=== PATIENT | female | born 1940 | race Caucasian/White ===

== ENCOUNTER 2021-06-13 08:00 | Outpatient (CLI) | payer MEDICARE ==
--- NOTE | 2021-06-13 13:33 | XRAY Report ---
PROCEDURE: Sacrum/Coccyx INDICATIONS: SACRUM COCCYX PAIN TECHNIQUE: 3 views of the sacrum and coccyx acquired. COMPARISON: None. FINDINGS: Bones: No fractures or dislocations. No suspicious bony lesions. Soft tissues: Visualized bowel gas pattern is normal. No suspicious soft tissue densities. 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 No prior trauma suspected. Reviewed by: Sher Ortega MD on 06/13/2021 1:32 PM PDT Approved by: Sher Ortega MD on 06/13/2021 1:32 PM PDT Station ID: [id number]
--- NOTE | 2021-06-13 13:34 | XRAY Report ---
PROCEDURE: Ankle 3 View LT INDICATIONS: LEFT ANKLE PAIN TECHNIQUE: 3 views of the ankle were acquired. COMPARISON: None FINDINGS: Bones: No fractures or dislocations. Ankle mortise is normally aligned. No suspicious bony lesions . Soft tissues: No tibiotalar joint effusion. Achilles tendon appears normal. IMPRESSION: A mild degree of joint space narrowing is seen at the tibiotalar joint without evidence of trauma or joint effusion. Source of left ankle pain otherwise is not found. Reviewed by: Sher Ortega MD on 06/13/2021 1:33 PM PDT Approved by: Sher Ortega MD on 06/13/2021 1:33 PM PDT Station ID: [id number]
--- NOTE | 2021-06-13 13:34 | XRAY Report ---
PROCEDURE: Foot 3 View LT INDICATIONS: LEFT FOOT PAIN TECHNIQUE: 3 views of the foot were acquired. COMPARISON: None FINDINGS: Bones: No fractures or dislocations. No suspicious bony lesions. Soft tissues: No tibiotalar joint effusion. Achilles tendon appears normal. IMPRESSION: Mild degenerative osteoarthritis at the first MTP joint, no trauma found. Reviewed by: Sher Ortega MD on 06/13/2021 1:33 PM PDT Approved by: Sher Ortega MD on 06/13/2021 1:33 PM PDT Station ID: [id number]
== END 2021-06-13 13:59 | disposition home or self-care (01) ==
LOC: DI.S 08:00
PROVIDERS: ATTEND Physician Assistant Medical
DX: M25.572 Pain in left ankle and joints of left foot (principal); M19.072 Primary osteoarthritis, left ankle and foot; M47.816 Spondylosis without myelopathy or radiculopathy, lumbar region; M51.36 Other intervertebral disc degeneration, lumbar region

== ENCOUNTER 2021-08-21 11:49 | Outpatient (CLI) | payer MEDICARE ==
[2021-08-21 14:50] LABS: BASOPHILS % (AUTO) 0.6 %; EOSINOPHILS # (AUTO) 0.1 10^3/uL (0.0-0.7); EOSINOPHILS % (AUTO) 1.3 %; HCT - HEMATOCRIT 42.8 % (37.0-47.0); HGB - HEMOGLOBIN 13.8 g/dL (12.0-16.0); LYMPHOCYTES # (AUTO) 1.9 10^3/uL (1.5-3.5); LYMPHOCYTES % (AUTO) 30.4 %; MEAN CORPUSCULAR HEMOGLOBIN 32.9 pg (27.0-31.0); MEAN CORPUSCULAR HGB CONC 32.2 g/dL (32.0-36.0); MEAN CORPUSCULAR VOLUME 102.1 fL (81.0-99.0); MEAN PLATELET VOLUME 9.7 fL (7.9-10.8); MONOCYTES # (AUTO) 0.8 10^3/uL (0.0-1.0); MONOCYTES % (AUTO) 12.1 %; NEUTROPHILS # (AUTO) 3.5 10^3/uL (1.5-6.6); NEUTROPHILS % (AUTO) 55.4 %; PLT - PLATELET COUNT 239 10^3/uL (130-450); RED BLOOD COUNT 4.19 10^6/uL (4.20-5.40); RED CELL DISTRIBUTION WIDTH 13.9 % (12.0-15.0); WHITE BLOOD COUNT 6.4 x10^3/uL (4.8-10.8)
[2021-08-21 15:40] LABS: ALBUMIN 4.2 g/dL (3.2-5.5); ALBUMIN/GLOBULIN RATIO 1.6 (1.0-2.2); BILIRUBIN,TOTAL 0.5 mg/dL (0.2-1.0); CALCIUM 9.5 mg/dL (8.5-10.3); CREATININE 0.7 mg/dL (0.4-1.0); POTASSIUM 4.3 mmol/L (3.5-5.0); TOTAL PROTEIN 6.9 g/dL (6.7-8.2)
[2021-08-21 15:54] LABS: THYROID STIMULATING HORMONE 2.27 uIU/mL (0.34-5.60)
== END 2021-08-21 11:50 | disposition home or self-care (01) ==
LOC: LAB.S 11:49
PROVIDERS: ATTEND Internal Medicine Geriatric Medicine
DX: E53.8 Deficiency of other specified B group vitamins (principal); E03.9 Hypothyroidism, unspecified; M81.0 Age-related osteoporosis without current pathological fracture; E55.9 Vitamin D deficiency, unspecified
CPT/HCPCS: 36415; 80053; 82306; 82607; 84443; 85025

== ENCOUNTER 2021-09-29 12:42 | Outpatient (CLI) | payer MEDICARE ==
--- NOTE | 2021-09-29 14:51 | CT Report ---
PROCEDURE: HEAD WO INDICATIONS: COGNITIVE IMPAIRMENT TECHNIQUE: Noncontrast 4.5 mm thick angled axial sections acquired from the foramen magnum to the vertex. For r adiation dose reduction, the following was used: automated exposure control, adjustment of mA and/or kV according to patient size. COMPARISON: None. FINDINGS: Image quality: Excellent. CSF spaces: Basal cisterns are patent. No extra-axial fluid collections. Ventricles are normal in size and shape. Brain: No midline shift. No intracranial masses or hemorrhage. Girard-white matter interface is norm al. Subcortical and periventricular hypodensities are consistent with microvascular ischemic disease. Microvascular ischemic disease and age-related cerebral volume loss. Skull and face: Calvarium and visualized facial bones are intact, without suspicious lesions. Sinuses: Visualized sinuses and mastoids are clear. IMPRESSION: 1. No acute intracranial abnormality. 2. Microvascular ischemic disease and age-related cerebral volume loss. Reviewed by: Christopher Ornelas on 09/29/2021 1:50 PM [facility] Approved by: Christopher Ornelas on 09/29/2021 1:50 PM [facility] Station ID: [id number]
== END 2021-09-29 12:43 | disposition home or self-care (01) ==
LOC: DI 12:42
PROVIDERS: ATTEND Internal Medicine Geriatric Medicine
DX: R41.89 Other symptoms and signs involving cognitive functions and awareness (principal)

== ENCOUNTER 2023-10-28 14:48 | Outpatient (CLI) | payer MEDICARE | END 2023-10-28 23:59 | disposition critical access hospital (66) | LOC: EMS 14:48 | DX: M54.50 Low back pain, unspecified (principal); R11.0 Nausea | CPT/HCPCS: A0425; A0427 ==

== ENCOUNTER 2023-10-28 15:17 | Emergency (ER) | payer MEDICARE ==
[2023-10-28] MEDS ORDERED: MORPHINE 2 MG/ML CARPUJECT IVP STA (15:31)
--- NOTE | 2023-10-28 15:32 | ED Physician Documentation ---
History of Present Illness - Stated complaint Stated Complaint: LOWER BACK PX - History obtained from History obtained from: Patient, Family, EMS - Additonal information Additional information: 83-year-old woman with dementia but very medically healthy presents by ambulance accompanied very shortly thereafter by her daughter. She has no history of back pain instantly started to complain of severe back pain this morning and could not get out of bed. There was no specific injury. She received 15 mg of IV Toradol and route from EMS, it is hard to ascertain due to her dementia if that was particularly helpful or not. No UTI symptoms or fevers. PD PAST MEDICAL HISTORY - Present Medications Home Medications: Ambulatory Orders Medication Instructions Recorded Confirmed HYDROcod/ACETAM 5/325 [Kyle 5/325] 0.5 - 1 tab PO Q6H PRN #8 tablet 10/28/23 - Allergies Allergies/Adverse Reactions: Allergies Allergy/AdvReac Type Severity Reaction Status Date / Time shellfish derived Allergy Anaphylaxis Verified 10/28/23 15:35 PD ED PE NORMAL - Vitals Vital signs reviewed: Yes - General General: Other (She is alert and oriented to person but not place time or events, she does appear to be uncomfortable and in pain. She has out of proportion overt pain response to blood pressure cuff.) - HEENT HEENT: PERRL, EOMI - Neck Neck: Supple, no meningeal sign, No bony TTP - Cardiac Cardiac: RRR, No murmur - Respiratory Respiratory: No respiratory distress, Clear bilaterally - Abdomen Abdomen: Non tender - Back Back: No spinal TTP - Derm Derm: Normal color, Warm and dry - Extremities Extremities: Other (The patient has equal and normal Achilles and patellar reflexes bilaterally. Normal sensation in all areas of the legs. Patient denies saddle anesthesia. Normal strength in flexion-extension at the ankles, knees, and flexion of the hips.) Results - Vitals Vitals: Vital Signs - 24 hr 10/28/23 10/28/23 10/28/23 15:27 15:43 16:43 Temperature 36.0 C L Heart Rate 64 66 68 Respiratory 15 17 16 Rate Blood Pressure 147/51 H 146/61 H 125/58 L O2 Saturation 98 99 97 10/28/23 10/28/23 10/28/23 19:48 19:50 20:05 Temperature Heart Rate 66 102 H Respiratory 19 17 19 Rate Blood Pressure 202/83 H 117/81 H O2 Saturation 95 10/28/23 20:25 Temperature Heart Rate Respiratory 17 Rate Blood Pressure O2 Saturation Oxygen O2 Source Room air - Labs Labs: Laboratory Tests 10/28/23 10/28/23 16:26 16:26 WBC 9.7 RBC 4.16 L Hgb 13.6 Hct 41.4 MCV 99.5 H MCH 32.7 H MCHC 32.9 RDW 13.0 Plt Count 215 MPV 8.6 Neut # (Auto) 7.6 H Lymph # (Auto) 1.1 L Amelia # (Auto) 1.0 Eos # (Auto) 0.0 Baso # (Auto) 0.0 Absolute Nucleated RBC 0.00 Nucleated RBC % 0.0 Sodium 140 Potassium 4.1 Chloride 105 Carbon Dioxide 29 Anion Gap 6.0 BUN 16 Creatinine 0.6 Estimated GFR (MDRD) 95 Glucose 96 Calcium 8.9 Total Bilirubin 0.6 AST 22 ALT 18 Alkaline Phosphatase 105 Total Protein 6.4 Albumin 3.7 Globulin 2.7 Albumin/Globulin Ratio 1.4 PD Medical Decision Making - ED course ED course: 83-year-old woman with acute atraumatic back pain. Given her age and the fact that she has some radiating abdominal pain a vascular issue is on the differential as well as metastatic disease. As such advanced imaging will be obtained. Advanced imaging was negative for vascular or skeletal etiology of back pain. After a small amount of morphine she was able to ambulate actually surprisingly quite well in the department unassisted. She was given for Vicodin to go. Departure - Departure Disposition: 01 Home, Self Care Clinical Impression: Back pain Qualifiers: Back pain location: low back pain Chronicity: acute Back pain laterality: unspecified Sciatica presence: without sciatica Qualified Code(s): M54.50 - Low back pain, unspecified Condition: Good Record reviewed to determine appropriate education?: Yes Instructions: ED Neck Back Pain General Prescriptions: HYDROcod/ACETAM 5/325 [Kyle 5/325] 0.5 - 1 tab PO Q6H PRN #8 tablet PRN Reason: Pain Comments: She can take half a tablet of the stronger pain pill every 6 hours for pain. Alternatively she can take Tylenol per package instructions for pain. Return for new or worsening symptoms. Follow-up with your primary care physician, next available appointment. Heat and gentle stretching would also be appropriate. I sent your prescription electronically to the [facility] in [place]. As discussed, no evidence of serious etiology of the back pain. CT angiography of the abdomen and pelvis and CT of the lumbar spine were without any cause of the pain suggesting that this is muscular. Labs were also unremarkable. Call your doctor to arrange a follow-up appointment, make the next available appointment. In the interim, return anytime if worse or if new symptoms develop. I am prescribing a short course of narcotic pain medication for you. These are potentially dangerous and addictive medications that should be used carefully. These medications may constipate you. Take an jwxn-utn-duajngv stool softener (docusate) twice daily with plenty of water while taking these medications. If you go 24 hours without a bowel movement, take [id number]-[id number] miralax, per package instructions. Do not drink or drive while taking these medications. If you received narcotic or sedating medications while in the emergency department, do not drive for 24 hours. Store this medication in a safe, secure place and out of reach of children. It is a violation of federal law to give or sell this medication to another pers on or to use in a manner other than prescribed. The ED will not refill narcotic prescriptions, including prescriptions lost or stolen. To dispose of unwanted medications: 1. [facility] provides a drop box for medication in pill form only (no liquids) 8:00 am to 4:30 p.m. Friday-Friday in the lobby of the [facility], [address] [place] [address]. Empty pills into ziplock bag before disposal. Call [phone] for information. 2.[employer] is a free service available to all [facility] residents. Go to [email or web address] Note that many narcotic pain relievers also contain Tylenol/acetaminophen. Please ensure that your total dose of acetaminophen from all sources does not exceed 3 g (3000 mg) per day. Discharge Date/Time: 10/28/23 20:26
[2023-10-28 16:30] LABS: BASOPHILS % (AUTO) 0.2 %; EOSINOPHILS % (AUTO) 0.2 %; HCT - HEMATOCRIT 41.4 % (37.0-47.0); HGB - HEMOGLOBIN 13.6 g/dL (12.0-16.0); LYMPHOCYTES # (AUTO) 1.1 10^3/uL (1.5-3.5); LYMPHOCYTES % (AUTO) 11.2 %; MEAN CORPUSCULAR HEMOGLOBIN 32.7 pg (27.0-31.0); MEAN CORPUSCULAR HGB CONC 32.9 g/dL (32.0-36.0); MEAN CORPUSCULAR VOLUME 99.5 fL (81.0-99.0); MEAN PLATELET VOLUME 8.6 fL (7.9-10.8); MONOCYTES % (AUTO) 9.8 %; NEUTROPHILS # (AUTO) 7.6 10^3/uL (1.5-6.6); PLT - PLATELET COUNT 215 10^3/uL (130-450); RED BLOOD COUNT 4.16 10^6/uL (4.20-5.40); WHITE BLOOD COUNT 9.7 x10^3/uL (4.8-10.8)
[2023-10-28] MEDS ORDERED: iohexoL-300 100 ML VIAL ONE (16:36)
[2023-10-28 16:55] LABS: ALBUMIN 3.7 g/dL (3.2-5.5); ALBUMIN/GLOBULIN RATIO 1.4 (1.0-2.2); BILIRUBIN,TOTAL 0.6 mg/dL (0.2-1.0); CALCIUM 8.9 mg/dL (8.5-10.3); CREATININE 0.6 mg/dL (0.6-1.3); POTASSIUM 4.1 mmol/L (3.5-4.5); TOTAL PROTEIN 6.4 g/dL (6.4-8.9)
--- NOTE | 2023-10-28 19:25 | CT Report ---
PROCEDURE: Angio Abdomen/Pelvis INDICATIONS: abd pain-back pain CONTRAST: Omni 300 100ml TECHNIQUE: After the administration of intravenous contrast, 2.5 mm thick sections acquired from the diaphragm t o the symphysis. 10 mm maximum-intensity projection (MIP) reformats were then acquired. For radiati on dose reduction, the following was used: automated exposure control, adjustment of mA and/or kV ac cording to patient size. COMPARISON: None FINDINGS: Image quality: Diagnostic. Aorta: No aortic dissection or aneurysmal dilatation. Calcified and noncalcified atherosclerotic vivi ques in the abdominal aorta. Mesenteric arteries: Celiac trunk, superior and inferior mesenteric arteries appear patent. Right pelvic arteries: Patent with calcified and noncalcified atherosclerotic calcifications. Left pelvic arteries: Patent with calcified and noncalcified atherosclerotic calcifications Extravascular soft tissues: Limited evaluation of abdominal organs on single arterial phase imaging i s unremarkable. Scattered colonic diverticulosis without CT evidence of acute inflammation. Bones: No acute or suspicious osseous inability. Moderate multilevel degenerative changes of the visu alized spine. IMPRESSION: No evidence of aortic dissection or aneurysmal dilatation. Aortobiiliac atherosclerotic calcifications. Reviewed by: Jody Eckert MD on 10/28/2023 7:24 PM PST Approved by: Jody Eckert MD on 10/28/2023 7:24 PM PST Station ID: [id number]
--- NOTE | 2023-10-28 19:28 | CT Report ---
PROCEDURE: Lumbar Spine WO INDICATIONS: back pain TECHNIQUE: Noncontrast 3 mm thick sections acquired from the T12 level to the sacrum. Sagittal and coronal refo rmats were constructed. For radiation dose reduction, the following was used: automated exposure co ntrol, adjustment of mA and/or kV according to patient size. COMPARISON: None. FINDINGS: Image quality: Diagnostic. Bones: Osteopenia of the normal lumbar lordosis. Multilevel disc height loss with endplate sclerosis and osteophytosis. No acute vertebral body compression fractures. No suspicious lytic or blastic bon y lesions. No pars defects. Soft tissues: No retroperitoneal masses or hematomas. Please see separately dictated same day CT ang iogram abdomen IMPRESSION: No acute fracture or traumatic subluxation. Reviewed by: Jody Eckert MD on 10/28/2023 7:27 PM PST Approved by: Jody Eckert MD on 10/28/2023 7:27 PM PST Station ID: [id number]
[2023-10-28 19:58] VITALS: O2SAT 95
[2023-10-28] MEDS ORDERED: HYDROcod/ACET 5/325 Prepack 4 PO STA (20:02)
[2023-10-28 20:08] VITALS: BP 117/81
[2023-10-28] MEDS ORDERED: iohexoL-300 100 ML VIAL IVP ONE (20:10)
== END 2023-10-28 20:26 | disposition home or self-care (01) ==
LOC: EDUNIT# → ED 15:17
DX: M54.50 Low back pain, unspecified (principal); F03.90 Unspecified dementia, unspecified severity, without behavioral disturbance, psychotic disturbance, mood disturbance, and anxiety
CPT/HCPCS: 36415; 72131; 74174; 80053; 85025; 96374; 99283; 99284; Q9967

== ENCOUNTER 2023-10-30 02:32 | Outpatient (CLI) | payer MEDICARE | END 2023-10-30 02:33 | disposition EMS.NT | LOC: EMS 02:32 | DX: M54.9 Dorsalgia, unspecified (principal) ==

== ENCOUNTER 2023-10-30 11:21 | Outpatient (CLI) | payer MEDICARE | END 2023-10-30 11:22 | disposition EMS.NT | LOC: EMS 11:21 | DX: M62.830 Muscle spasm of back (principal) ==

== ENCOUNTER 2024-06-27 14:25 | Emergency (ER) | payer MEDICARE ==
[2024-06-27] MEDS: lidocaine 1% 20 ML MDV SUBQ ONE (16:00)
[2024-06-27] MEDS: cephALEXin 250 MG CAPSULE PO STA (16:38)
[2024-06-27] MEDS: DOXYCYCLINE 100 MG TABLET PO STA (16:38)
--- NOTE | 2024-06-27 16:38 | ED Physician Documentation ---
History of Present Illness - Stated complaint Stated Complaint: ABSCESS ON FINGER LT HAND - Chief complaint Chief Complaint: Ext Problem - History obtained from History obtained from: Family - Additonal information Additional information: 84-year-old female with dementia who presents with her daughter today for left index finger redness and swelling. The patient continually picks at her skin and daughter noticed some mild redness around her left index finger yesterday but this morning it was not more intensely red and there was suspected pus underneath the skin. The patient has not had a fever otherwise in good condition. Daughter states that she herself had an abscess of her thumb drained a couple of days ago and is on clindamycin for this. She did give me consent to look into her chart to see if the wound culture was back it and at this time it is preliminary, no organisms seen. Review of Systems Unable to obtain: Dementia PD PAST MEDICAL HISTORY - Past Medical History Past Medical History: Yes Cardiovascular: Hypertension Neuro: Dementia Endocrine/Autoimmune: HyPOthyroidism - Past Surgical History Past Surgical History: Yes Ortho: Rotator cuff repair - Present Medications Home Medications: Ambulatory Orders Medication Instructions Recorded Confirmed HYDROcod/ACETAM 5/325 [[place] 5/325] 0.5 - 1 tab PO Q6H PRN #8 tablet 10/28/23 Doxycycline [Vibramycin] 100 mg PO BID #14 tablet 06/27/24 cephALEXin [Keflex] 500 mg PO Q6H #28 cap 06/27/24 - Allergies Allergies/Adverse Reactions: Allergies Allergy/AdvReac Type Severity Reaction Status Date / Time shellfish derived Allergy Anaphylaxis Verified 06/27/24 14:47 - Social History Does the pt smoke?: No Smoking Status: Never smoker Does the pt drink ETOH?: No Does the pt have substance abuse?: No - Immunizations Immunizations are current?: No - POLST Patient has POLST: Yes PD ED PE NORMAL - Vitals Vital signs reviewed: Yes - General General: No acute distress, Well developed/nourished - Cardiac Cardiac: RRR, No murmur - Respiratory Respiratory: No respiratory distress, Clear bilaterally - Derm Derm: Normal color, Warm and dry, Other (There is erythema of the distal left ring finger with visible purulence underneath the skin on the lateral aspect of the left ring finger. No nail involvement.) - Extremities Extremities: No deformity, Other (Erythema and swelling distal half of the left ring finger with purulence around the distal lateral edge. She is able to flex and extend the finger no sign of tenosynovitis.) Results - Vitals Vitals: Vital Signs - 24 hr 06/27/24 14:37 Temperature 36.2 C L Heart Rate 77 Respiratory 22 Rate Blood Pressure 105/91 H O2 Saturation 97 Oxygen O2 Source Room air Procedures - Abscess I&D (location) Finger left Preparation: Lidocaine 1% Incision: Incised with scalpel, Purulent drainage, Loculations broken, Irrigated, Culture obtained Other: Pt tolerated well, Dressing applied, Antibiotic prescribed PD Medical Decision Making - ED course Complexity details: considered differential, d/w patient, d/w family ED course: 84-year-old female with a history of dementia presents with left ring finger redness and swelling since yesterday. The patient does pick at her skin frequently according to her daughter and also He touches her genital area and stool with her hands. On exam today, the patient has purulent abscess of the distal left index finger with some surrounding erythema, no sign of tenosynovitis as patient has good range of motion of the finger. After discussion with patient and her daughter recommended a digital block and incision and drainage of this abscess which she consented to. A digital block was performed with lidocaine 1% plain and after adequate anesthesia achieved, an incision was made into the abscess and drained a large amount of purulent drainage. This was sent for culture. I irrigated and explored the wound, there were no loculations and it appeared fairly superficial and not extending into t he finger pad. ABand-Aid was applied. light pressure on I have started the patient on both Keflex and doxycycline pending the wound culture. I advised home wound care instructions as well as return precautions of any worsening symptoms including fever, spreading redness, increased swelling or new concerns. If the antibiotics need to be changed we will notify the patient by phone. I did review the daughter's recent wound culture which shows no current organisms growing. Departure - Departure Disposition: 01 Home, Self Care Clinical Impression: Abscess of finger of left hand Condition: Good Instructions: ED Abscess IandD Prescriptions: cephALEXin [Keflex] 500 mg PO Q6H #28 cap Doxycycline [Vibramycin] 100 mg PO BID #14 tablet Comments: Keep the wound clean with gentle soap and water, and it keep covered to try to avoid picking at it. Take both antibiotics as prescribed. We will run a wound culture and if we need to change antibiotics we will notify you by phone. If the finger gets increasingly red, and increasingly swollen or she develops a fever or otherwise worsening condition, please return to the emergency department. Forms: PCP List
[2024-06-27 16:53] VITALS: BP 150/101; O2SAT 99
== END 2024-06-27 16:44 | disposition home or self-care (01) ==
LOC: ED 14:25
DX: L02.512 Cutaneous abscess of left hand (principal); B95.61 Methicillin susceptible Staphylococcus aureus infection as the cause of diseases classified elsewhere; F03.90 Unspecified dementia, unspecified severity, without behavioral disturbance, psychotic disturbance, mood disturbance, and anxiety; I10 Essential (primary) hypertension; E03.9 Hypothyroidism, unspecified
CPT/HCPCS: 26010; 87070; 87181; 87205; 99283; A9270